=== PATIENT | female | born 1960 | race Two or more races ===

== ENCOUNTER 2019-06-26 09:47 | Day surgery (SDC) | payer OTHER ==
[2019-06-20 14:40] VITALS: BMI 38.4
[~2019-06-26 09:47] MED LIST: LACTATED RINGERS 1,000 ML IV SCH
[2019-06-26 10:30] VITALS: TEMP 98.1
[2019-06-26] MEDS ORDERED: PROPOFOL 10 MG/ML 20 ML VIAL IV ONE (10:53)
[2019-06-26] MEDS ORDERED: MIDAZOLAM 2 MG/2 ML VIAL ONE (10:53)
--- NOTE | 2019-06-26 11:22 | P.PCN ---
Date of Procedure: 06/26/19 Procedure(s) Performed: BRIEF HISTORY: Patient is a 59-year-old pleasant female, scheduled for an elective colonoscopy as a part of screening for colorectal neoplasia. Her last colonoscopy was 10 years ago. PROCEDURE PERFORMED: Colonoscopy. PREOPERATIVE DIAGNOSIS: Screening for colon cancer. IV sedation per Anesthesia. PROCEDURE: After informed consent was obtained, the patient, was brought into the endoscopy unit. IV sedation was administered by Anesthesia under continuous monitoring. Digital rectal examination was normal. Initially the Olympus CF-160 flexible video colonoscope was then inserted in the rectum, gradually advanced into the cecum without any difficulty. Careful examination was performed as the scope was gradually being withdrawn. Ileocecal valve and the appendiceal orifice were visualized and appeared normal. Prep was excellent. Mucosa of the cecum, ascending colon, transverse colon, descending colon, sigmoid colon, and rectum appeared normal. Scattered sigmoid diverticulosis seen. Retroflexion was performed in the rectum and no lesions were seen. The patient tolerated the procedure well. IMPRESSION: Normal-appearing colon from rectum to cecum with no evidence of colorectal neoplasia. Scattered sigmoid diverticulosis. RECOMMENDATIONS: Findings of this examination were discussed with the patient as well as her family. She was advised to have a repeat screening colonoscopy in 10 years.
[2019-06-26 11:41] VITALS: BP 112/70; PULSE 84; RESP 18
== END 2019-06-26 12:04 | disposition home or self-care (01) ==
LOC: ORWHC2ENDO 09:47
PROVIDERS: ATTEND Internal Medicine Gastroenterology
DX: Z12.11 Encounter for screening for malignant neoplasm of colon (principal); K57.30 Diverticulosis of large intestine without perforation or abscess without bleeding; Z91.041 Radiographic dye allergy status; D68.51 Activated protein C resistance; Z86.718 Personal history of other venous thrombosis and embolism; Z86.711 Personal history of pulmonary embolism; Z79.82 Long term (current) use of aspirin
CPT/HCPCS: J2250; J2704; G0121